=== PATIENT | female | born 1975 | race African-American/Black ===

== ENCOUNTER 2019-06-03 00:10 | Emergency (ER) | payer MEDICARE ==
[~2019-06-03] VITALS: Ht 154.9 cm; Wt 45.8 kg
[2019-06-03] MEDS ORDERED: IV NS 0.9% 1,000 ML BAG IV ONE (01:00)
--- NOTE | 2019-06-03 01:00 | NUR ---
bibs for evaluation of abd pain, n/v, vag bleeding x 1 wk. lmp: 04/16/19. [id number]. last in november 2018
[2019-06-03 01:12] LABS: BASOPHILS # (AUTO) 0.2 /CMM (0.0-0.2); BASOPHILS % (AUTO) 2.7 % (0.0-2.0); EOSINOPHILS % (AUTO) 2.6 % (0.0-6.0); HEMATOCRIT 38 % (33-45); HEMOGLOBIN 12.6 g/dL (11.5-14.8); LYMPHOCYTES % (AUTO) 10.9 % (20.0-44.0); MEAN CORPUSCULAR HGB CONC 34 g/dl (31.0-36.0); MEAN CORPUSCULAR VOLUME 86 fL (82-100); MONOCYTES # (AUTO) 0.5 /CMM (0.1-1.30); MONOCYTES % (AUTO) 5.8 % (2.0-12.0); NEUTROPHILS # (AUTO) 7.2 /CMM (1.8-8.9); PLATELET COUNT (AUTO) 255 /CMM (150-450); RED BLOOD CELL COUNT(AUTO) 4.39 MIL/uL (4.0-5.2); WHITE BLOOD COUNT (AUTO) 9.2 K/uL (4.3-11.0)
[2019-06-03 01:19] LABS: CALCIUM, SERUM 9.7 mg/dL (8.5-10.1); CREATININE 0.8 mg/dL (0.6-1.3); POTASSIUM 3.8 mmol/L (3.5-5.1)
--- NOTE | 2019-06-03 01:25 | NUR ---
us tech at the bed side
[2019-06-03 01:30] LABS: ALBUMIN 3.9 g/dL (3.4-5.0); BILIRUBIN,DIRECT 0.2 mg/dL (0.0-0.2); BILIRUBIN,TOTAL 0.6 mg/dL (0.2-1.0); TOTAL PROTEIN, SERUM 8.5 g/dL (6.4-8.2)
[2019-06-03] MEDS ORDERED: HYDROCODONE/APAP 5/325MG 1 EACH TABLET ONE (02:33)
--- NOTE | 2019-06-03 02:39 | NUR ---
PT REQUESTING PAIN MEDICATION AND A PRESCRIPTION FOR PAIN MEDICINE. MADE AWARE W/ AN ORDER FOR NORCO. PER MD PT IS HAVING A MISCARRIEGE. NEW ORDER NOTED AND CARRIED OUT.
--- NOTE | 2019-06-03 02:41 | NUR ---
IV removed. Catheter intact and site benign. Pressure and 4x4 applied to site. No bleeding noted.Patient discharged to home in stable condition. Rx and Written and verbal after care instructions given. Patient verbalizes understanding of instruction.
[2019-06-03 02:42] VITALS: BP 131/91
[2019-06-03] MEDS ORDERED: HYDROCODONE/APAP 5/325MG 1 EACH TABLET PO ONE (03:00)
== END 2019-06-03 02:42 | disposition home or self-care (01) ==
LOC: EDSEX 00:13 → ER 00:13
DX: O20.0 Threatened abortion (principal); I10 Essential (primary) hypertension; M06.9 Rheumatoid arthritis, unspecified; Z88.1 Allergy status to other antibiotic agents; Z3A.01 Less than 8 weeks gestation of pregnancy
CPT/HCPCS: 36415; 76856; 80048; 80076; 84702; 85025; 85730; 99284; J7030